=== PATIENT | male | born 1960 | race Caucasian/White ===

== ENCOUNTER 2017-05-11 00:41 | Emergency (ER) | payer OTHER ==
[~2017-05-11] VITALS: Ht 177.8 cm; Wt 73.7 kg
[2017-05-11 00:43] VITALS: BP 117/76
[2017-05-11] MEDS ORDERED: KETOROLAC 30 MG/1 ML ONE (01:58)
[2017-05-11] MEDS ORDERED: DIPHENHYDRAMINE 25 MG CAPSULE ONE (01:58)
[2017-05-11] MEDS ORDERED: FAMOTIDINE 20 MG TABLET ONE (01:58)
[2017-05-11] MEDS ORDERED: KETOROLAC 30 MG/1 ML IM ONE (02:00)
[2017-05-11] MEDS ORDERED: DIPHENHYDRAMINE 25 MG CAPSULE PO ONE (02:00)
[2017-05-11] MEDS ORDERED: FAMOTIDINE 20 MG TABLET PO ONE (02:00)
== END 2017-05-11 04:24 | disposition home or self-care (01) ==
LOC: ED 03:14
DX: M79.671 Pain in right foot (principal); T78.40XA Allergy, unspecified, initial encounter; E03.9 Hypothyroidism, unspecified; X58.XXXA Exposure to other specified factors, initial encounter
CPT/HCPCS: 73630; 96372; 99284; J1885; Q0163